=== PATIENT | male | born 1960 | race Caucasian/White ===

== ENCOUNTER 2021-07-22 01:45 | Emergency (ER) | payer SELFPAY ==
[2021-07-22] MEDS ORDERED: HYDROmorphone 1 MG/ML Syringe IM ONE (02:57)
[2021-07-22] MEDS ORDERED: Ibuprofen 600 MG Tab PO ONE (07:45)
== END 2021-07-22 08:20 | disposition home or self-care (01) ==
LOC: JD.ED 01:45
DX: S42.202A Unspecified fracture of upper end of left humerus, initial encounter for closed fracture (principal); S27.329A Contusion of lung, unspecified, initial encounter; I10 Essential (primary) hypertension; E11.9 Type 2 diabetes mellitus without complications; F17.210 Nicotine dependence, cigarettes, uncomplicated; E66.9 Obesity, unspecified; Z68.34 Body mass index [BMI] 34.0-34.9, adult; W01.0XXA Fall on same level from slipping, tripping and stumbling without subsequent striking against object, initial encounter; Y93.01 Activity, walking, marching and hiking
CPT/HCPCS: 71045; 73030; 93005; 96372; 99285; A9270; J1170

== ENCOUNTER 2023-05-28 11:03 | Emergency (ER) | payer MEDICAID | END 2023-05-28 14:35 | disposition home or self-care (01) | LOC: JD.ED 11:03 | DX: S42.032A Displaced fracture of lateral end of left clavicle, initial encounter for closed fracture (principal); M87.822 Other osteonecrosis, left humerus; I10 Essential (primary) hypertension; E11.9 Type 2 diabetes mellitus without complications; E66.9 Obesity, unspecified; Z90.49 Acquired absence of other specified parts of digestive tract; Z68.34 Body mass index [BMI] 34.0-34.9, adult; W18.30XA Fall on same level, unspecified, initial encounter | CPT/HCPCS: 73030-26-LT; 73030-LT; 73200-26-LT; 73200-LT; 99284 ==